=== PATIENT | female | born 1935 | race Caucasian/White ===

== ENCOUNTER 2024-04-19 08:43 | Emergency (ER) | payer MEDICARE, OTHER ==
[~2024-04-19] VITALS: Ht 160 cm; Wt 53.5 kg
[~2024-04-19 08:43] MED LIST: ASPI81CH PO; CALCIUM PO; CARV25 PO; COREG CR PO; CYAN1000I IM; CYCL10 PO; LOSA50 PO; OMEP20ER PO; PROP120ER PO; PROP60 PO; Prilosec Otc20 MG PO; TEMA15 PO; TEMA30 PO; VITAMIN B-12 IM; VITAMIN C PO; VITAMIN D PO
[2024-04-19 09:34] LABS: BASOPHILS ABSOLUTE AUTO 0.06 K/mm3 (0.00-0.23); BASOPHILS PERCENT AUTO 0 % (0-2); EOSINOPHILS ABSOLUTE AUTO 0.21 K/mm3 (0.00-0.68); EOSINOPHILS PERCENT AUTO 2 % (0-6); Hematocrit 33.8 % (33.0-51.0); Hemoglobin 11.4 g/dL (11.5-16.0); IMMATURE GRAN PERCENT AUTO 1 % (0-1); LYMPHOCYTES ABSOLUTE AUTO 1.29 K/mm3 (0.84-5.20); LYMPHOCYTES PERCENT AUTO 9 % (21-46); MONOCYTES ABSOLUTE AUTO 1.42 K/mm3 (0.16-1.47); MONOCYTES PERCENT AUTO 10 % (4-13); Mean Corpuscular HGB 30.9 pg (26.0-34.0); Mean Corpuscular HGB Conc 33.7 g/dL (31.5-36.5); Mean Corpuscular Volume 92 fL (80-100); Mean Platelet Volume 9.5 fL (9.1-12.4); NEUTROPHILS ABSOLUTE AUTO 10.94 K/mm3 (1.96-9.15); NEUTROPHILS PERCENT AUTO 78 % (41-73); Platelet Count 500 K/mm3 (150-400); RDW Coefficient Variation 13.8 % (11.7-14.2); RDW Standard Deviation 46.1 fL (35.1-46.3); Red Blood Cell Count 3.69 M/mm3 (3.80-5.20); White Blood Cell Count 14.02 K/mm3 (4.00-11.30)
[2024-04-19 10:03] LABS: Albumin, Blood 2.5 g/dL (3.4-5.0); Albumin/Globulin Ratio 0.6 (0.8-1.8); Bilirubin, Total 0.7 mg/dL (0.1-1.0); Bun/Creatinine Ratio 42.1 (12.0-20.0); Calcium, Blood 8.9 mg/dL (8.5-10.1); Creatinine, Blood 0.45 mg/dL (0.40-1.00); Globulin, Blood 4.4 g/dL (2.2-4.0); Total Protein, Blood 6.9 g/dL (6.4-8.2)
[2024-04-19 11:02] VITALS: BP 142/84
[2024-04-19] MEDS ORDERED: CefTRIAXone 1000 MG Vial IM ONE (11:20)
[2024-04-19] MEDS ORDERED: AMOCLA875 PO (11:21)
[2024-04-19] MEDS ORDERED: ONDA4ODT MM (11:21)
[2024-04-19] MEDS ORDERED: Lidocaine 2% 5 ML SDV ONE (11:21)
[2024-04-19] MEDS ORDERED: MONDOXYNE NL100 MG PO (11:21)
[2024-04-19] MEDS ORDERED: CefTRIAXone Sodium 1,000 MG in NS 100 ML IV ONE (11:25)
[2024-04-19] MEDS ORDERED: Lidocaine HCl 1% 2 ML SDV INFIL ONE (11:30)
== END 2024-04-19 12:01 | disposition home or self-care (01) ==
LOC: ER 08:43
PROVIDERS: Physician Assistant
DX: J18.9 Pneumonia, unspecified organism (principal)
CPT/HCPCS: 71046; 80053; 85025; 96374; 99283-25; J0696

== ENCOUNTER 2024-04-28 12:27 | Inpatient (IN) | payer MEDICARE, OTHER ==
[~2024-04-28] VITALS: Ht 160 cm; Wt 51.8 kg
[~2024-04-28 12:27] MED LIST changes: +AMOCLA875 PO; +MONDOXYNE NL100 MG PO; +ONDA4ODT MM
[2024-04-28] MEDS ORDERED: NS 1,000 ML IV SCH (13:45)
[2024-04-28] MEDS ORDERED: Diltiazem HCl 5 MG / ML 5ML Vial IV ONE ×2 (13:50→15:40)
[2024-04-28 14:52] LABS: Source, Urine Fem Cath
[2024-04-28 14:55] LABS: BASOPHILS ABSOLUTE AUTO 0.06 K/mm3 (0.00-0.23); BASOPHILS PERCENT AUTO 1 % (0-2); EOSINOPHILS ABSOLUTE AUTO 0.16 K/mm3 (0.00-0.68); EOSINOPHILS PERCENT AUTO 3 % (0-6); Hematocrit 40.2 % (33.0-51.0); Hemoglobin 13.7 g/dL (11.5-16.0); IMMATURE GRAN ABSOLUTE AUTO 0.31 K/mm3 (0.00-0.10); IMMATURE GRAN PERCENT AUTO 5 % (0-1); LYMPHOCYTES ABSOLUTE AUTO 1.13 K/mm3 (0.84-5.20); LYMPHOCYTES PERCENT AUTO 18 % (21-46); MONOCYTES PERCENT AUTO 9 % (4-13); Mean Corpuscular HGB 30.5 pg (26.0-34.0); Mean Corpuscular HGB Conc 34.1 g/dL (31.5-36.5); Mean Corpuscular Volume 90 fL (80-100); Mean Platelet Volume 10.5 fL (9.1-12.4); NEUTROPHILS ABSOLUTE AUTO 4.19 K/mm3 (1.96-9.15); NEUTROPHILS PERCENT AUTO 65 % (41-73); Platelet Count 421 K/mm3 (150-400); RDW Coefficient Variation 14.6 % (11.7-14.2); RDW Standard Deviation 45.8 fL (35.1-46.3); Red Blood Cell Count 4.49 M/mm3 (3.80-5.20); White Blood Cell Count 6.45 K/mm3 (4.00-11.30)
[2024-04-28 15:19] LABS: Bilirubin, Urine Neg (Neg); Blood, Urine Neg (Neg); Color, Urine Yellow (P-Yellow); Glucose Qualitative, Urine Neg (Neg); Ketones, Urine 1+ (Neg); Leukocyte Esterase, Urine Neg (Neg); Nitrite, Urine Neg (Neg); Protein, Urine 1+ (Neg); Urobilinogen, Urine NORM (Normal)
[2024-04-28 15:25] LABS: Albumin, Blood 2.5 g/dL (3.4-5.0); Albumin/Globulin Ratio 0.6 (0.8-1.8); Bilirubin, Total 0.5 mg/dL (0.1-1.0); Bun/Creatinine Ratio 35.4 (12.0-20.0); Creatinine, Blood 0.57 mg/dL (0.40-1.00); Globulin, Blood 4.3 g/dL (2.2-4.0); Potassium, Blood 4.4 mmol/L (3.5-5.5); Total Protein, Blood 6.8 g/dL (6.4-8.2)
[2024-04-28] MEDS ORDERED: Dexamethasone Sod Phos 10 MG/ML 1ML VIAL IV ONE (15:40)
[2024-04-28 15:57] LABS: Influenza A, PCR NEGATIVE (NEGATIVE); Influenza B, PCR NEGATIVE (NEGATIVE); Resp Syncytial Virus, PCR NEGATIVE (NEGATIVE)
[2024-04-28 16:11] LABS: SARS-Cov-2 (COVID-19) PCR, MMC POSITIVE (NEGATIVE)
[2024-04-28 16:29] LABS: Appearance, Urine Hazy (Clear)
[2024-04-28 16:32] LABS: Bacteria Mod /hpf; Hyaline Casts 0-2 /lpf (0-2); Mucus Light (0-Heavy); Red Blood Cells, Urine 0-2 /hpf (0-2); Squamous Epithelial Cells Rare /hpf (Few)
[2024-04-28] MEDS ORDERED: Metoprolol Tartrate 1 MG/ML 5 ML VIAL IV PRN (17:55)
[2024-04-28] MEDS ORDERED: Temazepam 15 MG Cap PO PRN (17:55)
[2024-04-28] MEDS ORDERED: Tiotropium Bromide 2.5 MCG/ACT MIST INHAL (10 ACT/4 GM) INH SCH (18:00)
[2024-04-28] MEDS ORDERED: Albuterol 2.5 MG/3 ML VIAL INH SCH (18:00)
[2024-04-28] MEDS ORDERED: Magnesium Hydroxide Conc 10 ML UDC PO PRN (18:05)
[2024-04-28] MEDS ORDERED: Acetaminophen 325 MG TABLET PO PRN (18:05)
[2024-04-28] MEDS ORDERED: Ondansetron 4 MG TAB PO PRN (18:05)
[2024-04-28] MEDS ORDERED: Remdesivir (EUA) 200 MG in NS 250 ML IV ONE (18:05)
[2024-04-28] MEDS ORDERED: Bisacodyl 10 MG Supp PR PRN (18:05)
[2024-04-28] MEDS ORDERED: Mometasone/Formoterol MDI 200/5 mcg 13 GM INH SCH (18:15)
[2024-04-28] MEDS ORDERED: CefTRIAXone Sodium 1,000 MG in NS 100 ML IV SCH (19:00)
[2024-04-28] MEDS ORDERED: Lactobacil 2-S.Thermo-Bifido 1 1 Cap PO SCH (21:00)
[2024-04-28] MEDS ORDERED: GuaiFENesin 600 MG TabCR PO SCH (21:00)
[2024-04-28] MEDS ORDERED: Famotidine 20 MG Tab PO SCH (21:00)
[2024-04-29 05:50] LABS: Hematocrit 36.5 % (33.0-51.0); Hemoglobin 12.3 g/dL (11.5-16.0); Mean Corpuscular HGB 30.8 pg (26.0-34.0); Mean Corpuscular HGB Conc 33.7 g/dL (31.5-36.5); Mean Corpuscular Volume 92 fL (80-100); Mean Platelet Volume 10.7 fL (9.1-12.4); Platelet Count 337 K/mm3 (150-400); RDW Coefficient Variation 14.6 % (11.7-14.2); RDW Standard Deviation 47.9 fL (35.1-46.3); Red Blood Cell Count 3.99 M/mm3 (3.80-5.20); White Blood Cell Count 5.24 K/mm3 (4.00-11.30)
[2024-04-29] MEDS ORDERED: Omeprazole 20 MG CapCR PO SCH (06:00)
[2024-04-29 06:16] LABS: Albumin, Blood 2.1 g/dL (3.4-5.0); Albumin/Globulin Ratio 0.5 (0.8-1.8); Bilirubin, Total 0.4 mg/dL (0.1-1.0); Bun/Creatinine Ratio 32.3 (12.0-20.0); Creatinine, Blood 0.5 mg/dL (0.40-1.00); Globulin, Blood 4.1 g/dL (2.2-4.0); Potassium, Blood 5.1 mmol/L (3.5-5.5); Total Protein, Blood 6.2 g/dL (6.4-8.2)
[2024-04-29 06:23] LABS: BAND PERCENT MAN 7 % (0-8); BASOPHILS PERCENT MAN 0 % (0-2); EOSINOPHILS PERCENT MAN 0 % (0-6); LYMPHOCYTES ABSOLUTE MAN 0.73 K/mm3 (0.84-5.20); LYMPHOCYTES PERCENT MAN 14 % (21-46); METAMYELOCYTE ABSOLUTE MAN 0.05 K/mm3 (0.00-0.00); METAMYELOCYTE PERCENT MAN 1 % (0-0); MONOCYTES ABSOLUTE MAN 0.26 K/mm3 (0.16-1.47); MONOCYTES PERCENT MAN 5 % (4-13); MYELOCYTE PERCENT MAN 2 % (0-0); NEUTROPHILS ABSOLUTE MAN 4.08 K/mm3 (1.96-9.15); SEG NEUTROPHILS PERCENT MAN 71 % (41-73); TOTAL CELLS COUNTED 100
[2024-04-29] MEDS ORDERED: MethylPREDNISolone Sod Succ 125 MG Vial IV SCH (08:00)
[2024-04-29 08:24] VITALS: BP 128/97
[2024-04-29] MEDS ORDERED: Azithromycin 250 MG Tab PO SCH (09:00)
[2024-04-29] MEDS ORDERED: Dexamethasone Sod Phos 10 MG/ML 1ML VIAL IV SCH (09:00)
[2024-04-29] MEDS ORDERED: Furosemide 10 MG / ML 2ML Vial IV SCH (09:00)
[2024-04-29] MEDS ORDERED: Heparin Sodium,Porcine 5,000 UNIT/0.5 ML SDV SC SCH (09:00)
[2024-04-29] MEDS ORDERED: Midodrine 5 MG Tab PO SCH ×2 (09:00)
[2024-04-29] MEDS ORDERED: Sodium Zirconium Cyclosilicate 10 GM Packet PO SCH (09:00)
[2024-04-29] MEDS ORDERED: Furosemide 10 MG/ML 4ML Vial IV SCH (09:00)
--- NOTE | 2024-04-29 09:36 | NUR ---
ARRIVAL TO PCU 12 PT ARRIVED TO PCU 12 AT APPROXIMATELY 0810. PT SLID OVER FROM ER GURNEY TO HOSPITAL BED BY 3 CLINICAL STAFF MEMBERS. PT A&Ox4, COMMUNICATES NEEDS APPROPRIATELY, ORIENTED TO CALL LIGHT/UNIT. PT ARRIVED ON AMIO gtt @ 16.7mLs/hr, VERIFIED WITH PHARMACY. BP STABLE, AFIB 100-130's, DENIES CP/PRESSURE. PT ARRIVED ON 2L VIA NC c SpO2 100%, SUCCESSFULLY TITRATED DOWN TO RA WITH SpO2> 92%, DENIES SOB; PT HAS WEAK/CONGESTED COUGH. PURE WICK IN PLACE. BED IN LOWEST POSITION, CALL LIGHT IN REACH.
[2024-04-29 12:10] VITALS: BP 129/81
[2024-04-29 16:00] VITALS: BP 94/71
--- NOTE | 2024-04-29 17:43 | NUR ---
SHIFT SUMMARY SEE PREVIOUS NOTE. PT A&Ox4, CALLS AND COMMUNICATES NEEDS APPROPRIATELY. BP STALBE, AFIB 100-130's, DENIES CP/PRESSURE. AMIO gtt INFUSING PER EMAR. SpO2> 92% 2-3L VIA NC, DENIES SOB. PT WITH WEAK/CONGESTED COUGH. PT REMAINED BEDREST, Q2 TURNS PROVIDED. IN/CONTINENT OF URINE, PUREWICK IN PLACE. NO BM THIS SHIFT, 2 SMALL SMEARS. NO C/O PAIN. NO OTHER EVENTS, WILL REPORT TO ONCOMING RN.
[2024-04-29] MEDS ORDERED: Remdesivir (EUA) 100 MG in NS 250 ML IV SCH (18:00)
[2024-04-29 19:19] VITALS: BP 135/93
[2024-04-29] MEDS ORDERED: Metoprolol Tartrate 1 MG/ML 5 ML VIAL IV PRN (21:55)
[2024-04-30 00:34] VITALS: BP 130/99
[2024-04-30 03:36] VITALS: BP 139/98
[2024-04-30 03:38] LABS: Hematocrit 38.6 % (33.0-51.0); Hemoglobin 13.1 g/dL (11.5-16.0); Mean Corpuscular HGB Conc 33.9 g/dL (31.5-36.5); Mean Corpuscular Volume 89 fL (80-100); Mean Platelet Volume 10.2 fL (9.1-12.4); Platelet Count 484 K/mm3 (150-400); RDW Coefficient Variation 14.7 % (11.7-14.2); RDW Standard Deviation 46.1 fL (35.1-46.3); Red Blood Cell Count 4.36 M/mm3 (3.80-5.20); White Blood Cell Count 11.46 K/mm3 (4.00-11.30)
[2024-04-30 04:10] LABS: Albumin, Blood 2.1 g/dL (3.4-5.0); Albumin/Globulin Ratio 0.5 (0.8-1.8); Bilirubin, Total 0.3 mg/dL (0.1-1.0); Bun/Creatinine Ratio 39.2 (12.0-20.0); Calcium, Blood 8.2 mg/dL (8.5-10.1); Creatinine, Blood 0.59 mg/dL (0.40-1.00); Globulin, Blood 3.9 g/dL (2.2-4.0); Magnesium, Blood 1.8 mg/dL (1.6-2.4); Potassium, Blood 3.9 mmol/L (3.5-5.5)
--- NOTE | 2024-04-30 06:05 | NUR ---
SHIFT SUMMARY PATIENT ALERT, ORIENTED x4. ABLE TO MAKE NEEDS KNOWN TO STAFF. PATIENT VERY SOFT SPOKEN AND SLOW TO RESPOND AT TIMES. BP STABLE. TELE READING AFIB 120-140s DURING THE NIGHT. AMIO GTT COMPLETED. CALLED HOSPITALIST ABOUT CHANGING PATIENT TO ORAL MEDICATIONS, PRN LOPRESSOR CHANGED TO COVER FOR HYPERTENSION AND RATE CONTROL. NO CHANGE TO RATE OVERNIGHT. DENIED CHEST PAIN. PATIENT ON 3-4L NC WITH SPO2 LOW TO MID 90s. PATIENT WITH CONGESTED PRODUCTIVE COUGH. STRAIGHT CATH x1 D/T >700 IN BLADDER. PUREWICK REPLACED AFTER STRAIGHT CATH. PATIENT ASSISTING WITH CARE AND TURNS. NO OTHER CHANGES DURING THE NIGHT, WILL REPORT TO DAY SHIFT RN.
[2024-04-30 07:41] VITALS: BP 114/92
[2024-04-30] MEDS ORDERED: Metoprolol Tartrate 1 MG/ML 5 ML VIAL IV PRN ×2 (07:45→16:50)
--- NOTE | 2024-04-30 08:41 | NUR ---
AM NOTES; PT ON 3L OF O2 UPON SHIFT CHANGE DESATS TO LOW 80'S WITH EXERTION, RECOVERS WHEN TAKING DEEP BREATHS, HRR REMAINS AFIB 120-140'S, PT STARTED ON PO METOPROLO BP 115, AFEBRILE. PT ALERT AND ORIENTED X3-4 SLOW TO RESPOND AT TIMES BUT ABLE TO ANSWER QUESTIONS APPROPRIATELY. PT TOLERATED BREAKFATS THIS MORNING PT WIHT HX OF DYSPHAGIA MEDS WHOLE WITH APPLESAUCE. PUREWICK IN PLACE, PER REPORT PT WAS RETAINING NEEDING STRAIGHT CATHETERIZATION, WILL MONITOR FOR THE SHIFT, PT REPOSITIONED FOR COMFORT, CALL LIGHTS IN REACH WILL CONTINUE TO MONITOR
[2024-04-30] MEDS ORDERED: Metoprolol Tartrate 25 MG Tab PO SCH ×3 (09:00→21:00)
[2024-04-30 11:11] VITALS: BP 122/97
[2024-04-30] MEDS ORDERED: Labetalol HCL 5 MG/ML 4ML Injection (Single Dose) IV ONE (11:15)
[2024-04-30 11:55] LABS: Source, Urine Foley catheter
[2024-04-30 12:06] LABS: Bilirubin, Urine Neg (Neg); Blood, Urine Neg (Neg); Glucose Qualitative, Urine Neg (Neg); Ketones, Urine Neg (Neg); Leukocyte Esterase, Urine Neg (Neg); Nitrite, Urine Neg (Neg); Protein, Urine Neg (Neg); Specific Gravity, Urine 1.015 (1.003-1.022); Urobilinogen, Urine NORM (Normal)
[2024-04-30 12:13] LABS: Appearance, Urine Clear (Clear); Color, Urine Pale Yellow (P-Yellow)
[2024-04-30 16:39] VITALS: BP 117/99
--- NOTE | 2024-04-30 17:43 | NUR ---
PT SUMMARY; PT HAS BEEN ON 2L OF O3 T/O SHIFT SATS ABOVE 94%, BREATHING TX PER RT AND INCENTIVE SPIROMETER OFFERED, PT ABLE TO DEMONSTRATE. HRR AFIB 120-140'S PT WAS GIVEN LABETALOL AND METOPROLOL PUSHES FOR THE SHIFT, METOPROL PO INCREASED TO 25MG BID. SBP 100-120'S MAP >65. DENIES CHEST PAIN CHEST PAIN/PRESSURE. PT HAS BEEN USING SUCTION AT THE BEDSIDE, PT HAS SOME YELLOW THICK MUCUS PT ABLE TO COUGH OUT. PT RECEIVED A BED BATH TODYA, CATHETER WAS PLACED PER MD'S ORDER PT HAS BEEN RETAINING >400MLS EVEN AFTER VOIDING 200MLS. PT HAD 700MLS OUT FOR THE SHIFT. PT NOW UP IN THE CHAIR FOR DINNER, 1-2PA VIA FWW AND GAITBELT, GENERALIZED WEAKNESS NOTED. PT HAS BEEN ALERT AND ORIENTED X3-3 FOR THE SHIFT, CALLS APPROPRIATELY AND ABLE TO MAKE NEEDS KNOWN. NO OTHER ISSUES REPORTED FOR THE SHIFT, WILL REPORT TO ONCOMING SHIFT
[2024-04-30 19:57] VITALS: BP 119/89
[2024-05-01 00:42] VITALS: BP 118/77
[2024-05-01 03:53] LABS: BASOPHILS ABSOLUTE AUTO 0.02 K/mm3 (0.00-0.23); BASOPHILS PERCENT AUTO 0 % (0-2); EOSINOPHILS PERCENT AUTO 0 % (0-6); Hemoglobin 13.3 g/dL (11.5-16.0); IMMATURE GRAN ABSOLUTE AUTO 0.22 K/mm3 (0.00-0.10); IMMATURE GRAN PERCENT AUTO 1 % (0-1); LYMPHOCYTES ABSOLUTE AUTO 1.24 K/mm3 (0.84-5.20); LYMPHOCYTES PERCENT AUTO 8 % (21-46); MONOCYTES ABSOLUTE AUTO 0.84 K/mm3 (0.16-1.47); MONOCYTES PERCENT AUTO 5 % (4-13); Mean Corpuscular HGB 30.6 pg (26.0-34.0); Mean Corpuscular HGB Conc 34.1 g/dL (31.5-36.5); Mean Corpuscular Volume 90 fL (80-100); Mean Platelet Volume 10.7 fL (9.1-12.4); NEUTROPHILS ABSOLUTE AUTO 14.02 K/mm3 (1.96-9.15); NEUTROPHILS PERCENT AUTO 86 % (41-73); Platelet Count 542 K/mm3 (150-400); RDW Coefficient Variation 15.1 % (11.7-14.2); RDW Standard Deviation 47.4 fL (35.1-46.3); Red Blood Cell Count 4.35 M/mm3 (3.80-5.20); White Blood Cell Count 16.34 K/mm3 (4.00-11.30)
[2024-05-01 04:16] VITALS: BP 127/97
[2024-05-01 04:32] LABS: Albumin, Blood 2.2 g/dL (3.4-5.0); Albumin/Globulin Ratio 0.6 (0.8-1.8); Bilirubin, Total 0.3 mg/dL (0.1-1.0); Bun/Creatinine Ratio 50.3 (12.0-20.0); Calcium, Blood 8.3 mg/dL (8.5-10.1); Creatinine, Blood 0.58 mg/dL (0.40-1.00); Magnesium, Blood 2.2 mg/dL (1.6-2.4); Phosphorus, Blood 2.9 mg/dL (2.5-4.9); Potassium, Blood 3.6 mmol/L (3.5-5.5); Total Protein, Blood 6.2 g/dL (6.4-8.2)
--- NOTE | 2024-05-01 05:59 | NUR ---
SHIFT SUMMARY PATIENT ALERT, ORIENTED x4. ABLE TO MAKE NEEDS KNOWN TO STAFF. PATIENT STATES SHE IS FEELING BETTER THAN [employer]. BP STABLE. TELE READING AFIB 110-120s DURING THE NIGHT, HR WILL GET UP TO 130-140 BUT WILL NOT SUSTAIN. PATIENT ON 2L NC WITH SPO2 >90%. PATIENT TURNING SELF IN BED. SMITH IN PLACE DRAINING YELLOW URINE TO GRAVITY. NO OTHER CHANGES DURING THE NIGHT, WILL REPORT TO DAY SHIFT RN.
[2024-05-01 08:30] VITALS: BP 130/92
[2024-05-01] MEDS ORDERED: Digoxin 0.25 MG Tab PO ONE (08:30)
[2024-05-01] MEDS ORDERED: Midodrine 5 MG Tab PO SCH (09:00)
[2024-05-01] MEDS ORDERED: Furosemide 20 MG Tab PO SCH (09:00)
[2024-05-01 12:41] VITALS: BP 133/90
--- NOTE | 2024-05-01 13:00 | NUR ---
ASSUMED CARE OF PT AT 0700 THIS AM. NO ACUTE CHANGES. HR IS SLOWLY TRENDING DOWN ON TELE. CONTACTED DR HOLLEY AND ORDERS WERE DISCONTINUED FOR MIDODRINE AND LOKELMA. PT APPEARS TO BE DOING WELL, NO COMPLAINTS OR CONCERNS, SHE IS VISITING WITH HER SON AT BEDSIDE AT THIS TIME. CALL LIGHT IN REACH. WILL CONTINUE TO MONITOR.
[2024-05-01 16:14] VITALS: BP 119/83
--- NOTE | 2024-05-01 18:01 | NUR ---
NO ACUTE CHANGES SINCE LAST NOTE. PT HAS HAD NO COMPLAINTS OR CONCERNS OTHER THAN POOR APPETITIE. ENSURE SUPPLEMENTS ORDERED PER HER REQUEST. VSS HAVE REMAINED STABLE. PT REMAINS A&OX4, ABLE TO USE CALL LIGHT FOR NEEDS, CALL LIGHT IN REACH. WILL CONTINUE TO MONITOR AND GIVE REPORT TO NOC SHIFT RN.
[2024-05-01 20:11] VITALS: BP 139/97
[2024-05-01] MEDS ORDERED: Melatonin 3 MG Tab PO PRN (23:25)
[2024-05-02] MEDS ORDERED: Digoxin 0.25 MG/ML 2ML Amp IV SCH (00:10)
[2024-05-02 00:35] VITALS: BP 122/88
--- NOTE | 2024-05-02 00:47 | NUR ---
UPDATE AROUND 0000, PATIENT CALLED AND WAS REPORTING CHEST PAIN. PATIENT DESCRIBES IT PRESSURE BUT DOES NOT GIVE ANY OTHER DETAILS. TELE NOTED PATIENT'S HR TO BE RANGING FROM 130-140 AT THIS TIME. NO CHANGES TO BP, REMAINS STABLE. CALL PLACED TO HOSPITAIST REGARDING UPDATE. ORDERS RECIEVED FOR LABS TO BE DRAWN, IV DIG AND AN ECHO IN THE MORNING. HOSPITALIST MADE AWARE THAT PATIENT HAS RECEIVED MULTIPLE ANTIARRHYTHMICS WITH NO CHANGE TO HR SINCE BEING IN THE HOSPITAL. SEE UPDATED ORDERS. IV DIG GIVEN TO PATIENT PER EMAR. PATIENT ALSO MEDICATED WITH PRN TEMAZEPAM. HR CONTINUING TO BE 120-130s OCCASIONALLY UP TO 150s. PATIENT STATING THAT CHEST PAIN BEGAN TO SUBSIDE AFTER IV DIG WAS GIVEN. WILL CONTINUE TO REASSESS NEEDED.
[2024-05-02 01:07] LABS: Bun/Creatinine Ratio 59.4 (12.0-20.0); Calcium, Blood 8.5 mg/dL (8.5-10.1); Creatinine, Blood 0.51 mg/dL (0.40-1.00); Magnesium, Blood 2.2 mg/dL (1.6-2.4); Potassium, Blood 3.4 mmol/L (3.5-5.5)
[2024-05-02] MEDS ORDERED: Potassium Chl 20MEQ/Water100ML 100 ML IV ONE (01:55)
[2024-05-02] MEDS ORDERED: Potassium Chl 20MEQ/Water100ML 100 ML IV SCH (02:15)
[2024-05-02] MEDS ORDERED: NS 250 ML IV PRN (03:00)
[2024-05-02 03:10] VITALS: BP 116/77
[2024-05-02 04:01] LABS: BASOPHILS ABSOLUTE AUTO 0.02 K/mm3 (0.00-0.23); BASOPHILS PERCENT AUTO 0 % (0-2); EOSINOPHILS PERCENT AUTO 0 % (0-6); Hematocrit 36.9 % (33.0-51.0); Hemoglobin 12.5 g/dL (11.5-16.0); IMMATURE GRAN ABSOLUTE AUTO 0.16 K/mm3 (0.00-0.10); IMMATURE GRAN PERCENT AUTO 1 % (0-1); LYMPHOCYTES ABSOLUTE AUTO 0.68 K/mm3 (0.84-5.20); LYMPHOCYTES PERCENT AUTO 5 % (21-46); MONOCYTES ABSOLUTE AUTO 1.06 K/mm3 (0.16-1.47); MONOCYTES PERCENT AUTO 8 % (4-13); Mean Corpuscular HGB 30.6 pg (26.0-34.0); Mean Corpuscular HGB Conc 33.9 g/dL (31.5-36.5); Mean Corpuscular Volume 90 fL (80-100); Mean Platelet Volume 10.8 fL (9.1-12.4); NEUTROPHILS ABSOLUTE AUTO 10.85 K/mm3 (1.96-9.15); NEUTROPHILS PERCENT AUTO 85 % (41-73); Platelet Count 427 K/mm3 (150-400); RDW Coefficient Variation 15.1 % (11.7-14.2); RDW Standard Deviation 48.4 fL (35.1-46.3); Red Blood Cell Count 4.09 M/mm3 (3.80-5.20); White Blood Cell Count 12.77 K/mm3 (4.00-11.30)
[2024-05-02 04:17] LABS: Bun/Creatinine Ratio 54.3 (12.0-20.0); Calcium, Blood 7.7 mg/dL (8.5-10.1); Creatinine, Blood 0.52 mg/dL (0.40-1.00); Magnesium, Blood 2.2 mg/dL (1.6-2.4); Phosphorus, Blood 2.3 mg/dL (2.5-4.9); Potassium, Blood 3.4 mmol/L (3.5-5.5)
--- NOTE | 2024-05-02 06:49 | NUR ---
SHIFT SUMMARY PATIENT ALERT AND ORIENTED x3-4. SOFT SPOKEN BUT ABLE TO MAKE NEEDS KNOWN TO STAFF. PATIENT ON 2L NC WITH SPO2 >90%. TELE READING AFIB 110-130s DURING THE NIGHT. BP STABLE. SEE PREVIOUS NOTE REGARDING UPDATE. NO FURTHER CHEST PAIN SINCE PREVIOUS NOTE. SMITH IN PLACE DRAINING DARK YELLOW URINE TO GRAVITY. NO OTHER CHANGES THIS SHIFT, WILL REPORT TO DAY SHIFT RN.
[2024-05-02 08:29] VITALS: BP 140/88
[2024-05-02] MEDS ORDERED: PredniSONE 20 MG Tab PO SCH (09:00)
[2024-05-02] MEDS ORDERED: Digoxin 0.125 MG Tab PO SCH (09:00)
--- NOTE | 2024-05-02 10:41 | NUR ---
TRANSFER TO 335 PT A&Ox4, CALLS AND COMMUNICATES NEEDS APPROPRIATELY. BP STALBE, AFIB 80-110's, DENIES CP/PRESSURE. SpO2> 92% RA, DENIES SOB. PT WITH WEAK/CONGESTED COUGH. 1 ASSIST TO CHAIR. SMITH IN PLACE, PATENT, DRAINING TO GRAVITY. NO BM THIS SHIFT. NO C/O PAIN. REPORT GIVEN TO MEDICAL FLOOR RN, ALL PT BELONGINGS GATHERED AND PT TRANSFERED VIA WHEELCHAIR TO ROOM 335.
--- NOTE | 2024-05-02 11:51 | NUR ---
PT TRANSFER TO [facility] FLOOR PT A&OX4. TRANSFERED FROM PCU TO FLOOR THIS AM. PT ON ROOM AIR, AND CONT. PULSE MONITOR ON. PT REPORTS NO SOB, DENIES CONCERNS. PT HAS A SMITH CATHETER, BLADDER TRAINING INITIATED. PT HAS BEEN EDUCATED ABOUT USING CALL LIGHT APPROPRIATELY.
--- NOTE | 2024-05-02 12:27 | NUR ---
NOTE TELE NOTIFIED OF TWO SECOND PAUSES. PT REPORTS NO ACUTE CHANGES, NOR SOB, OR CHEST DISCOMFORT. NOTIFIED DR. HOLLEY. NO NEW ORDERS INDICATED. PT REMAINS ON TELE.
[2024-05-02 16:08] VITALS: BP 135/84
--- NOTE | 2024-05-02 18:31 | NUR ---
SHIFT SUMMARY PT A&OX4. PT ADMITTED DUE TO COVID. VSS. PT DENIES SOB/CHEST DISCOMFORT. PT ON ROOM AIR. PT HAS CONTINUOUS PULSE OX ON. SPO2 AT 93%, ON ROOM AIR. PT HAS BEEN RESTING IN BED DURING SHIFT. PER REPORT PT IS STAND BY ASSIST. BLADDER TRAINING INITIATED. SMITH D/C, PT COOROPERATED WITH D/C OF SMITH. PT UNDERSTANDS TO CALL IF NEED TO VOID. PT EATS ADEQUATELY. PT CALLS APPROPRIATELY AND MAKES HER NEEDS KNOWN.
[2024-05-02 19:18] VITALS: BP 133/79
[2024-05-03 02:22] VITALS: BP 123/96
[2024-05-03 06:22] LABS: BASOPHILS ABSOLUTE AUTO 0.04 K/mm3 (0.00-0.23); BASOPHILS PERCENT AUTO 0 % (0-2); EOSINOPHILS ABSOLUTE AUTO 0.13 K/mm3 (0.00-0.68); EOSINOPHILS PERCENT AUTO 1 % (0-6); Hematocrit 40.2 % (33.0-51.0); Hemoglobin 13.4 g/dL (11.5-16.0); IMMATURE GRAN PERCENT AUTO 2 % (0-1); LYMPHOCYTES ABSOLUTE AUTO 1.35 K/mm3 (0.84-5.20); LYMPHOCYTES PERCENT AUTO 8 % (21-46); MONOCYTES PERCENT AUTO 12 % (4-13); Mean Corpuscular HGB 30.4 pg (26.0-34.0); Mean Corpuscular HGB Conc 33.3 g/dL (31.5-36.5); Mean Corpuscular Volume 91 fL (80-100); Mean Platelet Volume 11.1 fL (9.1-12.4); NEUTROPHILS ABSOLUTE AUTO 13.59 K/mm3 (1.96-9.15); NEUTROPHILS PERCENT AUTO 78 % (41-73); Platelet Count 463 K/mm3 (150-400); RDW Coefficient Variation 15.1 % (11.7-14.2); RDW Standard Deviation 48.5 fL (35.1-46.3); Red Blood Cell Count 4.41 M/mm3 (3.80-5.20); White Blood Cell Count 17.41 K/mm3 (4.00-11.30)
--- NOTE | 2024-05-03 06:35 | NUR ---
VSS, O2 SATURATION > 90 THROUGH MOST OF SHIFT, AROUND 0600 PT DESAT TO MID 80S UNABLE TO IMPROVE WITH REPOSITIONING, DEEP BREATHING AND INCENTIVE SPIROMETER USE, PLACED ON 2L O2 VIA NC. TELE RHYTHM AFIB IN LOW 100S BUT PT HAD OCCASIONAL SPIKES TO >150 BPM. PT VOIDING AFTER SMITH REMOVED. WBC COUNT ELEVATED THIS MORNING. PLAN FOR HOME O2 EVAL AND POTENTIAL DISCHARGE TODAY.
[2024-05-03 06:42] LABS: Albumin, Blood 2.3 g/dL (3.4-5.0); Albumin/Globulin Ratio 0.6 (0.8-1.8); Bilirubin, Total 0.5 mg/dL (0.1-1.0); Bun/Creatinine Ratio 46.6 (12.0-20.0); Creatinine, Blood 0.49 mg/dL (0.40-1.00); Globulin, Blood 3.7 g/dL (2.2-4.0); Magnesium, Blood 2.2 mg/dL (1.6-2.4); Phosphorus, Blood 1.3 mg/dL (2.5-4.9); Potassium, Blood 3.7 mmol/L (3.5-5.5)
[2024-05-03] MEDS ORDERED: Furosemide 10 MG / ML 2ML Vial IV ONE (07:45)
[2024-05-03] MEDS ORDERED: Albuterol 2.5 MG/3 ML VIAL INH PRN (08:30)
[2024-05-03 16:10] VITALS: BP 143/76
--- NOTE | 2024-05-03 16:40 | NUR ---
SHIFT SUMMARY PATIENT IN BED MOST OF SHIFT WITH EXCEPTION OF BSC. PUREWICK PLACED LATER IN SHIFT DUE TO EXHAUSTION, PATIENT INCREASINGLY SOB AND REQUIRING MORE ASSISTANCE TO GET BACK AND FORTH SAFELY. PATIENT COMPLAINING OF GENERAL NOT FEELING WELL THIS SHIFT. DR HOLLEY WAS ASKED TO CONTACT FAMILY REGARDING PLAN OF CARE AND DISCHARGE. BED LOW POSITION, USES CALL LIGHT APPROPRIATELY. ABLE TO MAKE NEEDS KNOWN. CARES ONGOING
[2024-05-03 19:16] VITALS: BP 149/79
--- NOTE | 2024-05-03 23:18 | NUR ---
PT REFUSED NIGHTTIME MEDICATIONS STATING "I JUST WANT TO GO TO BED" AND "I CAN'T SWALLOW ANYTHING". WHEN QUESTIONED, PT STATED SHE HAS AN UPSET STOMACH BUT THAT SHE CAN TOLERATE WATER. EDUCATED PT ON IMPORTANCE OF MEDICATIONS. PT CONTINUES TO REFUSE. PT REPOSITIONED TO HER RIGHT SIDE, LIGHTS DIMMED PER HER REQUEST. PT DENIES ANY OTHER NEEDS AT THIS TIME.
[2024-05-04] VITALS (12 sets, daily range): BP systolic 120–156; BP diastolic 73–128
--- NOTE | 2024-05-04 07:59 | NUR ---
SHIFT SUMMARY: PAUL AROUSES EASILY AND RESPONDS APPROPRIATELY. SHE HAS COMPLAINED OF FEELING UNWELL THIS SHIFT. WHEN QUERIED WHAT DID NOT FEEL WELL, PT STATED SHE WANTED THE LIGHTS OFF. PT RESTED QUIETLY WITH HER EYES CLOSED AND EVEN, UNLABORED RESPRIRATIONS FOR SEVERAL HOURS THIS SHIFT. PT DID COMPLAIN OF STOMACH UPSET LAST NIGHT AND REFUSED ALL OF HER NIGHTTIME MEDICATIONS STATING "I JUST WANT TO GO TO BED". PUREWICK IN PLACE. PT USES THE CALL LIGHT APPROPRIATELY. SHE DID TOLERATE WATER THIS SHIFT. PT IS LYING IN BED WITH THE CALL LIGHT IN REACH, BED IN LOWEST POSITION. REPORT WAS GIVEN TO DAY SHIFT RN.
[2024-05-04 08:42] LABS: Hematocrit 43.8 % (33.0-51.0); Hemoglobin 14.8 g/dL (11.5-16.0)
[2024-05-04 08:58] LABS: Bun/Creatinine Ratio 30.5 (12.0-20.0); Calcium, Blood 8.1 mg/dL (8.5-10.1); Creatinine, Blood 0.49 mg/dL (0.40-1.00); Magnesium, Blood 2.1 mg/dL (1.6-2.4); Potassium, Blood 3.2 mmol/L (3.5-5.5)
--- NOTE | 2024-05-04 12:02 | NUR ---
ELEVATED HR- PT HAS ELEVATED HR NOTED ON ALARMING BIOX, SHOWS 188. THIS RN CALLED [employer]ATING AND BAKING OPERATOR ALEX TO DETERMINE IF THIS IS A TRUE READING. PER TELE, PT HR WAS ELEVATED THIS MORNING, HE SPOKE TO NURSING STAFF, PT WAS THEN GIVEN PO MEDS. HOWEVER THE PT HR TREND HAS CONTINUED TO BE "ALL OVER THE PLACE." BOUNCING [phone] TO [phone] HOLLEY THE PT HAS A SINGLE ORDER THAT IS A PRN FROM 9-11 IV LOPRESSOR X3. PER DR HOLLEY THEY WILL TRANSFER THE PT TO PCU AND GIVE AMIODORONE. NURSING MARINE DIVER NOTIFIED OF BED REQUEST.
--- NOTE | 2024-05-04 12:14 | NUR ---
HOME O2 EVAL WAS PERFORMED YESTERDAY VIA RESPIRATORY THERAPY. DUPLICATE ORDER DC'D.
--- NOTE | 2024-05-04 13:00 | NUR ---
pt moved to pcu 18 via bed, report given to Josefa WALLACE, son at bedside. all belongings went with pt.
[2024-05-04] MEDS ORDERED: Potassium Chloride 20 MEQ TabCR PO ONE (14:05)
--- NOTE | 2024-05-04 14:38 | NUR ---
TRANSFER NOTE/CARE ASSUMPTION PT A&OX4. ABLE TO MAKE NEEDS KNOWN. SP02>90% ON RA, 2L FOR COMFORT D/T TACHYPENIA. RR HIGH 20'S LOW 30'S. TELEMETRY SHOWS AFIB, HR AVG 120'S. PT PLACED ON AMIODERONE GTT PER EMAR. PURWIK PLACED, VOIDING YELLOW URINE. PT POTASSIUM 3.2. CALL PLACED TO MD HOLLEY. MD HOLLEY W/ ORDERS FOR 40 MEQ PO. PT ABLE TO TAKE PILLS ONCE DISSOLVED IN WATER. SON AT BEDSIDE. NUMBERS ON BOARD. PT STATES SHE IS TIRED, CURRENTLY NAPPING. CALL LIGHT IN REACH.
--- NOTE | 2024-05-04 17:42 | NUR ---
SHIFT SUMMARY NO ACUTE CHANGES SINCE CARE ASSUMPTION. PT CONTINUES TO BE ON AMIO GTT, HR 110'S-150'S, AFIB. PT SLEEPING IN ROOM, ENCOURAGED PT TO DRINK ENSURE AT DINNER. SON LEFT FOR NIGHT, NUMBER ON BOARD. CALL LIGHT IN REACH.
--- NOTE | 2024-05-04 18:56 | NUR ---
UPDATE PT C/O OF SOB. SATS >90% oN 2L NC. RT CALLED FOR BREATHING TX. NOT IMPROVED. CALL PLACED TO MD HOLLEY. MD HOLLEY W/ ORDERS FOR CHEST XRAY.
[2024-05-04] MEDS ORDERED: Apixaban 5 MG Tab PO SCH (21:00)
--- NOTE | 2024-05-04 21:12 | NUR ---
PROVIDER NOTIFIED OF INTERMITTENT CHEST RUBBING SOUND ON AUSCULTATION, NARROW PULSE PRESSURES, PT UNABLE TO SWALLOW PO MEDS AT THIS TIME, CHOKED WHEN ATTEMPTING TO SWALLOW METOPROLOL, LATENT COUGH WITH JUST WATER, LEFT FOOT SWOLLEN.
[2024-05-05] VITALS (7 sets, daily range): BP systolic 121–153; BP diastolic 70–111
--- NOTE | 2024-05-05 03:28 | NUR ---
SHIFT SUMMARY NEURO: A/OX4, SLOW TO RESPOND. WEAK BUT EQUAL STRENGTH. PUPILS EQUAL AND REACTIVE. CARDIAC: HTN, NARROW PULSE PRESSURES. RUB AND REGURG AUSCULTATED. EKG AND CT PE COMPLETED. AMIO GTT. EDEMA GREATER ON L LEG. PAIN IN BACK OF CALF. LUNGS: ON 2L NC. RR 16-18. GI/: PURWICK CHANGED. SKIN: MEPILEX PLACED LATENT COUGH AFTER THIN LIQUIDS. PT TOOK ABOUT FIVE SECONDS TO SWALLOW APPLESAUCE. MASS FOUND ON CT. GI CONSULT RECOMMENDED. SWALLOW STUDY ORDERED
[2024-05-05] MEDS ORDERED: Ondansetron HCl 2 MG / ML 2ML Vial IV PRN (03:53)
[2024-05-05 05:39] LABS: Hemoglobin 13.8 g/dL (11.5-16.0)
[2024-05-05 05:52] LABS: International Normalized Ratio 1.22; Prothrombin Time Results 12.9 Sec (9.7-11.5)
[2024-05-05] MEDS ORDERED: Heparin Sodium,Porcine/0.5 NS 500 ML IV SCH (06:00)
[2024-05-05 06:07] LABS: Bun/Creatinine Ratio 35.5 (12.0-20.0); Calcium, Blood 8.2 mg/dL (8.5-10.1); Creatinine, Blood 0.42 mg/dL (0.40-1.00); Potassium, Blood 2.9 mmol/L (3.5-5.5)
[2024-05-05] MEDS ORDERED: Potassium Chloride 20 MEQ/15 ML UDC PO ONE (08:25)
[2024-05-05] MEDS ORDERED: Digoxin 0.25 MG/ML 2ML Amp IV ONE (12:00)
[2024-05-05] MEDS ORDERED: Rivaroxaban 10 MG Tab PO ONE (14:20)
--- NOTE | 2024-05-05 18:20 | NUR ---
SHIFT SUMMARY PT REMAINS ALERT AND ORIENTED, BUT LETHARGIC MOST OF SHIFT. O2 SATS REMAIN ABOVE 90% ON 2L NC. BP STABLE. HR REMAINS AFIB 90'S. HR UP TO 130'S WITH MINIMAL ACTIVITY. SPEECH THERAPY WORKED WITH PT THIS AM AND SWALLOW PRECAUTIONS IN PLACE. PT REPORTS POOR APPETITE AND "TOO TIRED" TO EAT. ENSURE PROVIDED THIS EVENING. MINIMAL URINE OUTPUT THIS SHIFT. BLADDER SCAN DONE AND 390ML OF URINE RECORDED. PT REPOSITIONED Q2H. UPDATE PROVIDED TO JONO SCOTT THIS AFTERNOON.
[2024-05-05] MEDS ORDERED: Metoprolol Tartrate 25 MG Tab PO SCH (21:00)
[2024-05-06 00:15] VITALS: BP 147/84
[2024-05-06 03:53] VITALS: BP 144/89
[2024-05-06 04:03] LABS: Base Excess Venous 9.2 mmol/L; Bicarbonate Venous 32.1 mmol/L (24.0-30.0); PCO2 Venous 40.8 mmHg (38-42); pH Blood Venous 7.51 (7.34-7.37)
[2024-05-06 04:04] LABS: BASOPHILS ABSOLUTE AUTO 0.07 K/mm3 (0.00-0.23); BASOPHILS PERCENT AUTO 1 % (0-2); EOSINOPHILS ABSOLUTE AUTO 0.04 K/mm3 (0.00-0.68); EOSINOPHILS PERCENT AUTO 0 % (0-6); Hemoglobin 13.9 g/dL (11.5-16.0); IMMATURE GRAN ABSOLUTE AUTO 0.53 K/mm3 (0.00-0.10); IMMATURE GRAN PERCENT AUTO 4 % (0-1); LYMPHOCYTES ABSOLUTE AUTO 1.28 K/mm3 (0.84-5.20); LYMPHOCYTES PERCENT AUTO 9 % (21-46); MONOCYTES ABSOLUTE AUTO 1.33 K/mm3 (0.16-1.47); MONOCYTES PERCENT AUTO 10 % (4-13); Mean Corpuscular HGB 30.2 pg (26.0-34.0); Mean Corpuscular HGB Conc 33.9 g/dL (31.5-36.5); Mean Corpuscular Volume 89 fL (80-100); Mean Platelet Volume 10.6 fL (9.1-12.4); NEUTROPHILS ABSOLUTE AUTO 10.75 K/mm3 (1.96-9.15); NEUTROPHILS PERCENT AUTO 77 % (41-73); Platelet Count 405 K/mm3 (150-400); RDW Coefficient Variation 14.8 % (11.7-14.2); RDW Standard Deviation 47.2 fL (35.1-46.3); Red Blood Cell Count 4.61 M/mm3 (3.80-5.20)
[2024-05-06 04:34] LABS: Alanine Aminotransfer (ALT/SGP 52 U/L (12-78); Albumin, Blood 2.2 g/dL (3.4-5.0); Albumin/Globulin Ratio 0.6 (0.8-1.8); Alk Phos 71 U/L (50-136); Anion Gap 10 mmol/L (3-11); Aspartate Aminotrans (AST/SGOT 50 U/L (12-37); Blood Urea Nitrogen 20 mg/dL (8-24); Bun/Creatinine Ratio 43.8 (12.0-20.0); CO2, Blood 28 mmol/L (21-32); Calcium, Blood 8.4 mg/dL (8.5-10.1); Chloride, Blood 99 mmol/L (98-108); Creatinine, Blood 0.46 mg/dL (0.40-1.00); Digoxin (Lanoxin) 1.23 ug/mL (0.80-2.00); Free Thyroxine 1.49 ng/dL (0.70-1.60); Globulin, Blood 3.5 g/dL (2.2-4.0); Glomerular Filtration Rate 93 (60-); Glucose, Blood 91 mg/dL (70-99); Potassium, Blood 3.9 mmol/L (3.5-5.5); Sodium, Blood 133 mmol/L (136-145); Total Protein, Blood 5.7 g/dL (6.4-8.2)
--- NOTE | 2024-05-06 06:10 | NUR ---
SHIFT SUMMARY ASSUMED CARE OF PT AT 1900. PT A&O4 WITH A FLAT AFFECT, COOPERATIVE, VSS AND IS ON 2L NC. PT APPEARS TO BE WEAK BUT ABLE TO FOLLOW COMMANDS. PT REPORTS HAVING NO URGE TO VOID AND BLADDER SCANS SHOWS >525ML. STRAIGHT CATH DONE AND 550ML OF URINE REMOVED. PERIODIC BLADDER SCAN SHOULD CONTINUE WITH NEXT SHIFT. PT'S BED IN LOWEST POSITION AND CALL LIGHT WITHIN REACH.
[2024-05-06 08:53] VITALS: BP 134/68
[2024-05-06] MEDS ORDERED: Potassium Chloride 20 MEQ/15 ML UDC PO SCH (09:00)
[2024-05-06] MEDS ORDERED: PredniSONE 20 MG Tab PO SCH (09:00)
[2024-05-06] MEDS ORDERED: Digoxin 0.25 MG Tab PO ONE (14:00)
[2024-05-06 15:29] VITALS: BP 135/98
[2024-05-06] MEDS ORDERED: Rivaroxaban 10 MG Tab PO SCH (16:00)
--- NOTE | 2024-05-06 19:01 | NUR ---
SHIFT SUMMARY PCU TRANSFER AT LUNCHTIME. PATIENT ALERT AND ORIENTED. DENIES PAIN, NAUSEA, AND SHORTNESS OF BREATH. MAINTAINING OXYGEN SATURATION ABOVE 95% ON ROOM AIR. UP SBA TO BR. PO INTAKE ENCOURAGED. PLEASANT AND COOPERATIVE WITH CARE.
[2024-05-06 19:54] VITALS: BP 136/86
[2024-05-07 03:42] VITALS: BP 149/88
--- NOTE | 2024-05-07 04:17 | NUR ---
NOC SUMMARY- PT HAD SOME URINE RETENTION THIS AM. BLADDER SCAN SHOWED >400 ML. PT WAS STRIGHT CATH WITH SUCCESS. PT HAD RESTED QUIETLY THROUGHOUT SHIFT. PT REPOSITIONED TOLERATED. PT REMAINED ON RA W/ SPO2 >90%. PT CURRENTLY SLEEPING IN NO DISTRESS. CALL LIGHT IN REACH AND BED ALARM ON.
[2024-05-07 05:54] LABS: Anion Gap 10 mmol/L (3-11); Blood Urea Nitrogen 27 mg/dL (8-24); Bun/Creatinine Ratio 49.9 (12.0-20.0); CO2, Blood 30 mmol/L (21-32); Calcium, Blood 8.2 mg/dL (8.5-10.1); Chloride, Blood 100 mmol/L (98-108); Creatinine, Blood 0.54 mg/dL (0.40-1.00); Digoxin (Lanoxin) 1.43 ug/mL (0.80-2.00); Glomerular Filtration Rate 89 (60-); Glucose, Blood 81 mg/dL (70-99); Potassium, Blood 3.9 mmol/L (3.5-5.5); Sodium, Blood 136 mmol/L (136-145)
[2024-05-07 07:28] VITALS: BP 149/95
[2024-05-07] MEDS ORDERED: Digoxin 0.125 MG Tab PO SCH (09:00)
[2024-05-07] MEDS ORDERED: Potassium Chloride 10 Meq Tablet SA PO SCH (09:00)
[2024-05-07] MEDS ORDERED: Potassium Chloride 20 MEQ/15 ML UDC PO SCH (09:22)
[2024-05-07] MEDS ORDERED: Sennosides 8.6 MG Tab PO ONE (14:45)
[2024-05-07 15:38] VITALS: BP 138/94
[2024-05-07] MEDS ORDERED: Ondansetron 4 MG SoluTab MM PRN (15:55)
--- NOTE | 2024-05-07 17:41 | NUR ---
SHIFT SUMMARY PATIENT A/OX4, ABLE TO MAKE NEEDS KNOWN. DENIES PAIN THIS SHIFT. COMPLAINING OF ABDOMINAL DISCOMFORT, NO BM X4 DAYS, MD NOTIFIED AND ONE TIME ORDER FOR 17.2MG SENNA ADMINISTERED AND PATIENT NOW WITH DAILY SENNA ORDERED BID. PATIENT ALSO NOTED WITH URINARY RETENTION, NEEDING STRAIGHT CATH THIS AFTERNOON X1. ORDERS RECIEVED TO STRAIGHT CATH [id number] PRN. RESPIRATORY REQUESTED INHALERS BE DISCONTINUED THIS MORNING AND ORDER RECIEVED TO DISCONTINUE BOTH SPIRIVA AND DULERA. PATIENT ALSO COMPLAINING OF NAUSEA THIS AM, PRN ZOFRAN GIVEN PER OCT. PATIENT REMAINS ON ENHANCED PRECAUTIONS, TELEMETRY IN PLACE, BILATRAL LEG EDEMA +2. PIV DRESSINGS CHANGED TO ALL 3 PIVs TODAY. PATIENT CONTINUES WIHT LITTLE TO NO APPETITE. NO OTHER CONCERNS AT THIS TIME.
[2024-05-07 19:36] VITALS: BP 132/84
[2024-05-08 03:16] VITALS: BP 141/74
--- NOTE | 2024-05-08 05:28 | NUR ---
NOC SUMMARY- PT HAS NO NEW ISSUES NOTED. PT HAS BEEN VOIDING VIA PUREWICK DEVICE. PT BLADDER SCAN WAS 289 ML THIS AM. PT REPORTS FEELING BETTER THIS SHIFT. PT REMAINS ON RA WITH SPO2 >90%. PT REPOSITIONED TOLERATED. PT COCCYX MEPILEX IS C/D/I. PT HAS NO COMPLAINTS. CALL LIGHT IN REACH AND BED ALARM ON.
[2024-05-08 08:21] VITALS: BP 158/71
[2024-05-08] MEDS ORDERED: PredniSONE 10 MG Tab PO SCH (09:00)
[2024-05-08 15:26] VITALS: BP 138/84
--- NOTE | 2024-05-08 16:31 | NUR ---
SHIFT SUMMARY: PT IS A&OX4/1 PERSON ASSIST, MAKES NEEDS KNOWN/CALLS APPROPRIATELY. SHE HAS BEEN VOIDING. APPETITE STILL POOR, DOES BETTER WITH LIQUIDS. STILL SHOWING LACK OF MOTIVATION, BUT BEING ENCOURAGED TO EAT, DRINK, AND MOVE. SHE IS PLEASANT AND OVERALL COOPERATIVE WITH CARE. [facility] SHE IS IN BED, CALL LIGHT WITHIN REACH, NO SIGNS OR SYMPTOMS OF DISTRESS. PLAN OF CARE ONGOING.
[2024-05-08 19:31] VITALS: BP 143/72
[2024-05-08] MEDS ORDERED: Sennosides 8.6 MG Tab PO SCH (21:00)
--- NOTE | 2024-05-09 05:10 | NUR ---
SHIFT SUMMARY. PATIENT IS A&O X4. PATIENT NO LONGER USING THE PUREWICK. PATIENT UP TO BATHROOM WITH 1P ASSIST. PATIENT IS ABLE TO MAKE HER NEEDS KNOWN. PATIENT HAD BM THIS SHIFT. PATIENT TOLERATED MEDS CRUSHED IN APPLE SAUCE. PATIENT CALLS APPROPRIATELY. PATIENT HAS TELE ON WITH LEADS IN PLACE-NO EVENTS THIS SHIFT. PLAN IS FOR PATIENT TO DISCHARGE TO [facility] TODAY FOR REHAB. PATIENT RESTED T/O NIGHT WITH RESPIRATIONS EQUAL AND UNLABORED. BED IS LOCKED IN THE LOWEST POSITION WITH CALL LIGHT IN REACH. CARE IS ONGOING.
--- NOTE | 2024-05-09 06:09 | NUR ---
OCTAVIA MAR CALLED IN REGARDS TO ISOLATION FOR PATIENT. PATIENT IS OUT OF HER ISOLATION PERIOD. DROPLET ISOLATION DAX'rashida.
[2024-05-09 06:20] LABS: Anion Gap 9 mmol/L (3-11); Blood Urea Nitrogen 29 mg/dL (8-24); Bun/Creatinine Ratio 53.5 (12.0-20.0); CO2, Blood 29 mmol/L (21-32); Calcium, Blood 8.3 mg/dL (8.5-10.1); Chloride, Blood 102 mmol/L (98-108); Creatinine, Blood 0.54 mg/dL (0.40-1.00); Digoxin (Lanoxin) 1.18 ug/mL (0.80-2.00); Glomerular Filtration Rate 89 (60-); Glucose, Blood 91 mg/dL (70-99); Potassium, Blood 4.2 mmol/L (3.5-5.5); Sodium, Blood 136 mmol/L (136-145)
[2024-05-09 07:01] VITALS: BP 154/83
[2024-05-09] MEDS ORDERED: DIGOX125 MC1 PO (10:04)
[2024-05-09] MEDS ORDERED: FURO20 PO (10:05)
[2024-05-09] MEDS ORDERED: METO25ER PO (10:06)
[2024-05-09] MEDS ORDERED: POTA10T PO (10:06)
[2024-05-09] MEDS ORDERED: SENN187 PO (10:07)
[2024-05-09] MEDS ORDERED: XARELTO15 MG PO (10:07)
--- NOTE | 2024-05-09 12:02 | NUR ---
DISCHARGE NOTE: [facility] AND GOT REPORT FROM THIS RN ON THE PATIENT. MEDICAL TRANSPORT ARRIVED, PATIENT WAS ABLE TO TRANSFER FROM THE BED TO THE WHEELCHAIR WITH 1 STAFF ASSIST. FAMILY ARRIVED AND TOOK HER BELONGINGS AND STATED THAT THEY WOULD BE FOLLOWING THE MEDICAL TRANSPORTER TO THE FACILITY. NO SIGNS OR SYMPTOMS OF DISTRESS DURING DISCHARGE.
== END 2024-05-09 12:00 | DRG 177 ==
LOC: ER 12:27 → ERHOLD 17:58 → PCU 17:58 → MEDS 05-02 10:23 → PCU 05-04 12:40 → MEDS 05-06 11:43
PROVIDERS: Emergency Medicine; Family Medicine; Internal Medicine; Student in an Organized Health Care Education/Training Program; ADMIT Hospitalist
PROC: 0T9B70Z Drainage of Bladder with Drainage Device, Via Natural or Artificial Opening (ICD-10-PCS; principal; 2024-04-28)
PROC: 8E0ZXY6 Isolation (ICD-10-PCS; 2024-04-28)
PROC: XW033E5 Introduction of Remdesivir Anti-infective into Peripheral Vein, Percutaneous Approach, New Technology Group 5 (ICD-10-PCS; 2024-04-29)
PROC: 3E0333Z Introduction of Anti-inflammatory into Peripheral Vein, Percutaneous Approach (ICD-10-PCS; 2024-04-29)
DX: U07.1 COVID-19 (principal); J12.82 Pneumonia due to coronavirus disease 2019; J96.01 Acute respiratory failure with hypoxia; E87.1 Hypo-osmolality and hyponatremia; J44.0 Chronic obstructive pulmonary disease with (acute) lower respiratory infection; E44.0 Moderate protein-calorie malnutrition; I50.32 Chronic diastolic (congestive) heart failure; I48.91 Unspecified atrial fibrillation; K21.9 Gastro-esophageal reflux disease without esophagitis; G43.909 Migraine, unspecified, not intractable, without status migrainosus; K22.5 Diverticulum of esophagus, acquired; Z96.1 Presence of intraocular lens; E87.6 Hypokalemia; I11.0 Hypertensive heart disease with heart failure; Z68.20 Body mass index [BMI] 20.0-20.9, adult; Z90.89 Acquired absence of other organs; Z98.84 Bariatric surgery status; Z90.12 Acquired absence of left breast and nipple; Z90.710 Acquired absence of both cervix and uterus; Z98.41 Cataract extraction status, right eye; Z98.42 Cataract extraction status, left eye; Z88.0 Allergy status to penicillin; Z88.2 Allergy status to sulfonamides; Z88.5 Allergy status to narcotic agent; Z88.6 Allergy status to analgesic agent; Z79.2 Long term (current) use of antibiotics; Z79.899 Other long term (current) drug therapy
CPT/HCPCS: 0241U; 36415; 71045; 71260; 80048; 80053; 80162; 81001; 81003; 82803; 82947; 83735; 83880; 84100; 84439; 84484; 85014; 85018; 85025; 85027; 85610; 85730; 87086; 92526; 92610; 93005; 93010; 93306; 94640; 94664; 94760; 94761; 94762; 96361; 96374; 96375; 96376; 97110; 97116; 97162; 97165; 97530; 97535; 99285-25; A9270; J0248; J0282; J0696; J1100; J1160; J1644; J1940; J2405; J2919; J3480; J7030; J7040; J7050; J7060; J7512; P9612; Q9967

== ENCOUNTER 2024-08-21 09:20 | Day surgery (SDC) | payer MEDICARE, OTHER ==
[~2024-08-21] VITALS: Ht 160 cm; Wt 49.5 kg
[2024-08-21] VITALS (9 sets, daily range): BP systolic 113–149; BP diastolic 56–95
[~2024-08-21 09:20] MED LIST changes: +DIGOX125 MC1 PO; +FURO20 PO; +METO25ER PO; +POTA10T PO; +SENN187 PO; +XARELTO15 MG PO
[2024-08-21] MEDS ORDERED: NS 1,000 ML IV ONE (09:29)
[2024-08-21] MEDS ORDERED: Lidocaine HCl 1% 20 ML MDV ONE (13:08)
--- NOTE | 2024-08-21 14:00 | NUR ---
PT A&O X4. PT DRESSED. PT AND SON VERBALIZE D/C INSTRUCTIONS. IV D/C CATHETER INTACT. PT GIVEN D/C INSTRUCTIONS. PT WHEELED OUT OF DEPT TO SON'S CAR.
[2024-08-21] MEDS ORDERED: Propofol 10mg/ml 20 ml Vial (Procedural) IV ONE (22:13)
== END 2024-08-21 23:00 | disposition home or self-care (01) ==
LOC: MHTC 09:20
DX: I48.91 Unspecified atrial fibrillation (principal); I10 Essential (primary) hypertension; H35.30 Unspecified macular degeneration; J44.9 Chronic obstructive pulmonary disease, unspecified; Z86.16 Personal history of COVID-19; Z79.899 Other long term (current) drug therapy; Z88.0 Allergy status to penicillin; Z88.1 Allergy status to other antibiotic agents; Z88.2 Allergy status to sulfonamides; Z88.5 Allergy status to narcotic agent; Z88.8 Allergy status to other drugs, medicaments and biological substances; Z90.710 Acquired absence of both cervix and uterus
CPT/HCPCS: 92960; 93005; 93010; J2704; J7030